=== PATIENT | male | born 1970 | race Caucasian/White ===

== ENCOUNTER → 2021-12-03 | Day surgery (SDC) | payer OTHER ==
[~2021-12-03] VITALS: Ht 183 cm; Wt 118.0 kg
[~2021-12-03] MED LIST: DICLOFENAC SODI75 MG PO; HCTZ25 MG PO; LOPRESSOR50 MG PO; PERCOCET 7.5/321 TAB PO; TOPAMAX50 MG PO; WELLBUTRIN XL150 MG PO
[2021-12-03 09:30] LABS: HCT 50.7 % (42.0-52.0); HGB 16.9 g/dl (13.2-18.0); MCH 32.4 pg (25.0-31.0); MCHC 33.3 g/dL (32.0-36.0); MCV 97.3 fL (78.0-100.0); MPV 9.1 fL (6.0-9.5); RBC 5.21 M/uL (4.70-6.00); RDW 13.7 % (11.5-14.0); WBC 7.3 K/uL (4.0-10.5)
[2021-12-03 10:05] LABS: ALBUMIN 3.6 g/dL (3.4-5.0); BILIRUBIN - TOTAL 0.4 mg/dL (0.2-1.0); BUN/CREAT RATIO (CALC) 12.9 RATIO; CREATININE 0.85 mg/dL (0.67-1.17); GLOBULIN (CALCULATION) 3.1 g/dL; POTASSIUM 4.7 mmol/L (3.5-5.1); TOTAL PROTEIN 6.7 g/dL (6.4-8.2)
== END | disposition home or self-care (01) ==
LOC: FAS 07:31
PROVIDERS: Surgery
DX: K64.5 Perianal venous thrombosis (principal); K64.1 Second degree hemorrhoids; I10 Essential (primary) hypertension; F17.210 Nicotine dependence, cigarettes, uncomplicated; Z88.5 Allergy status to narcotic agent; Z79.899 Other long term (current) drug therapy
CPT/HCPCS: 36415; 80053; J1100; J2250; J2405; J2704; J3010; J7120